=== PATIENT | female | born 1995 | race Two or more races ===

== ENCOUNTER 2023-03-30 01:53 | Day surgery (SDC) | payer OTHER, SELFPAY ==
[2023-03-15 14:11] VITALS: BMI 23.4
--- NOTE | 2023-03-15 14:15 | PC.NURSE ---
Report to the Outpatient Waiting Room, entrance under the green pavilion located off [facility], at time 1230 on date 03/30/23. Planned Procedure Time: 1430. Time changes happen often and if your time is changed the preop area will call you the afternoon before. - You and your visitor will be asked to self-screen and do not enter if you have any COVID symptoms. - A mask is optional within the hospital at this time. Patients may have clear liquids (water, carbonated beverages, clear teas, apple juice) until 3 hours prior to surgery with a maximum of 20 ounces. - No food from midnight until time of surgery Take the following medications with a SIP of water the morning of surgery: NONE DO NOT STOP ANY OF YOUR OTHER PRESCRIPTION MEDICATIONS PRIOR TO SURGERY ?EXCEPT THE FOLLOWING Medications to discontinue per physician: VITAMINS Date to take last dose: 03/26/23 Please no make-up, nail bulgarian, hairspray, perfume, deodorant, or body powder the day of surgery. No jewelry (including any body piercings) or valuables the day of surgery, leave them at home. Please take a shower or bath the night before, or the morning of, surgery with an antibacterial soap. Wear comfortable, loose fitting clothing. - Jewelry must be removed prior to entering the operating room. Rings and piercings that are not removed may be cut off. - The hospital will not accept responsibility for valuables. - Please leave all valuables, including medications, at home the day of surgery. If you are going home after surgery, a licensed cryogenic transport driver must drive you home. - NO public transportation without another adult if you receive anesthesia. - We recommend that an adult stay with you for 24 hours following discharge. - We also recommend that you do not drive, make important decision, drink alcoholic beverages, or take any drugs that were not prescribed by your health care provider for at least 24 hours after your discharge time. Follow any additional instructions given to you from your surgeon. If you or anyone in your household have experienced Covid symptoms in the past week, please notify your surgeon or the nurse liaison at the phone number below for possible testing. Telephone instructions given to PT - FLEX ARCEO and asked if any additional questions and then verbalized understanding. Patient advised to call surgeon office or pre surgery nurse liaison [phone] if any additional questions.
[2023-03-30] VITALS (10 sets, daily range): BP systolic 93–133; BP diastolic 49–84; PULSE 62–96; RESP 15–20; TEMP 36.4–36.6; O2SAT 99–100
--- NOTE | 2023-03-30 09:49 | P.PNAN_ITS ---
Anes - Initial Pre Proc Eval Procedure: Operation Date: 03/30/23 11:00 Proposed Procedures p Bilateral Breast Augmentation - Travis Muniz MD Date/Time: 03/30/23 09:49 Surgeon: Travis Muniz MD Pre Op Diagnosis: micromastia Patient Data Age: 27 Gender: F Height: 1.57 m Weight: 57.5 kg Last Vital Signs Temp 36.6 C 03/30/23 09:24 Pulse 62 03/30/23 09:24 Resp 18 03/30/23 09:24 BP 126/70 03/30/23 09:24 Pulse Ox 100 03/30/23 09:24 O2 Del Method Room Air 03/30/23 09:24 Allergies Allergy/AdvReac Type Severity Reaction Status Date / Time No Known Allergies Allergy Verified 03/15/23 14:10 Home Medications Medication Instructions Recorded Confirmed Type multivitamin 1 tablet PO DAILY 03/15/23 03/15/23 History Patient hx anesthesia problems: none Family hx anesthesia problems: none Results Review: All pre-operative results and documents have been reviewed as part of the pre- operative evaluation. [facility] Social History Social History Smoking status: Never smoker Alcohol intake: current Alcohol use details: RARE Substance use: current Substance use type: marijuana Living arrangements: with family Additional living arrangements comments: CHILDREN Spiritual care concerns: No Anes - Eval Final PreProcedure Day of Procedure 03/30/23 09:49 Patient weight: normal Heart: regular rate and rhythm Lungs: clear to auscultation Airway: Mallampati scale class II Neurological: alert and oriented Last oral intake: >/= 8 hours ASA classification: II Emergent: no Anesthetic plan: proceed Anesthesia type and monitoring: general LMA and standard monitoring Results Review: All pre-operative results and documents have been reviewed as part of the pre- operative evaluation. Informed Consent: The patient's anesthetic plan and its attendant risks and benefits were discussed with the patient/family/POA. Questions were solicited and answers provided to the satisfaction of the patient/family/POA.
[2023-03-30] MEDS: LACTATED RINGERS 1,000 ML 30 ML IV CONT ×2 (09:56→12:42)
--- NOTE | 2023-03-30 10:48 | WPDHPUPDATE1 ---
History and Physical Update Update Date/Time: 03/30/23 10:48 History and Physical has been reviewed, including an updated exam of the patient. There are NO changes in the patient's condition. Risks, benefits, and alternatives have been discussed and questions answered. Patient agrees to proceed with procedure.
--- NOTE | 2023-03-30 10:54 | W.PM.PROC2 ---
Procedure Note - Detailed Date of Procedure 03/30/23 Pre-op Diagnosis micromastia Post-op Diagnosis Same Procedure Performed Bilateral augmentation mammaplasty Surgeon Travis Muniz MD Anesthesia General Findings Bilateral Vicki SoftTouch 545 cc Right REF# [id number] SN [id number] Left REF# [id number] SN [id number] Description of Procedure She is here today for bilateral breast augmentation. Previously and again today the risks, benefits, alternatives were discussed in extensive detail. I wanted her to be very realistic about the risks involved as well as expectations. We discussed aftercare and what to monitor for. Made sure answered all of her questions to her satisfaction today and consent was obtained. Marked in the preoperative holding area with their verification. The patient was taken to the operating room placed supine on the operating table. Anesthesia was provided by anesthesiology. A surgical time-out was taken. We cleansed the skin and 1% lidocaine and 0.25% Marcaine with epinephrine was used anesthetize as a field block. She was prepped and draped in a standard sterile fashion. Tegaderm nipple Wolff were placed. A 15 blade used to make an incision along the inframammary fold. Dissection was continued at 45 degree angle until the chest wall as identified. I incised the pectoralis major along its inferior border and completely released the inferior border leaving the medial border intact. I created a subpectoral pocket in the appropriate dimensions based on our preoperative planning for the implant. I then copiously irrigated with saline solution and verified a strict hemostasis. Next the use a triple antibiotic and Betadine containing solution to irrigate the pocket. I washed my gloves with the triple antibiotic and Betadine solution. We washed the implant immediately upon opening it with this solution and only opened it when we needed it. I used implant funnel and no-touch technique. The implant was introduced into the pocket using the funnel. Having verified positioning of the implant this was closed using 2-0 PDS followed by 3-0 Monocryl in a running subcuticular 4-0 Monocryl followed by tissue glue. Fluffs and surgical bra were placed. Patient was awoke and taken to PACU without difficulty. All instrument sponge counts were correct at the end of the case. Estimated Blood Loss 25 Drains No Packing No Pathology None sent Complications No immediate complications Condition Stable Disposition PACU
[2023-03-30] MEDS: BUPivacaine HCL 0.25% PF 30 ML VIAL INFILTRATE (11:25)
[2023-03-30] MEDS: ceFAZolin 2 GM/D5W 50 ML 2 GM/50 ML BAG IVPB (11:25)
[2023-03-30] MEDS: TRANEXAMIC ACID 1,000MG/ISO100 1,000 MG/100 ML BAG 200 MG IVPB (11:30)
[2023-03-30] MEDS: NACL 0.9% IRRIG POUR BOTTLE 900 ML, GENTAMICIN SULFATE INJ 160 MG, ceFAZolin 2 GM, POVI... IRRIGATION (12:00)
[2023-03-30] MEDS: HYDROmorphone HCL INJ (*CRX) 1 MG/ML SYR 0.5 MG IV PUSH ×4 (12:55→13:29)
[2023-03-30] MEDS: oxyCODONE HCL (*CRX) 5 MG TAB IR PO (14:09)
== END 2023-03-30 14:55 | disposition home or self-care (01) ==
PROVIDERS: Visit Provider Surgery Plastic and Reconstructive Surgery
PROC: (CPT 19325; principal; 2023-03-30 11:00)
DX: Z41.1 Encounter for cosmetic surgery (principal); F12.90 Cannabis use, unspecified, uncomplicated
CPT/HCPCS: 19325; A9270; J0690; J1170; J1580; J2250; J2405; J2704; J7120

== ENCOUNTER 2024-04-09 06:49 | Day surgery (SDC) | payer OTHER, SELFPAY ==
[2024-03-18 12:19] VITALS: BMI 23.5
[2024-04-09] VITALS (7 sets, daily range): BP systolic 101–118; BP diastolic 68–80; PULSE 65–93; RESP 12–18; TEMP 36.3–36.4; O2SAT 97–100; BMI 23.0
[2024-04-09] MEDS: LACTATED RINGERS 1,000 ML 30 ML IV CONT ×2 (08:22→10:33)
--- NOTE | 2024-04-09 08:34 | P.OP_ITS ---
Procedure Note - Detailed Date of Procedure 04/09/24 Pre-op Diagnosis Capsular Contracture Left Breast Post-op Diagnosis Same Procedure Performed Left breast implant exchange Surgeon Travis Muniz MD Anesthesia General Indications History bilateral augmentation mammaplasty with left breast capsular contractu re. Would like to proceed with left implant exchange. Findings Thin capsules noted Partial capsulectomy completed IMF adjusted to match contralateral side Lateral capsulotomy Description of Procedure Preoperatively the risks, benefits, alternatives were discussed in extensive detail. I wanted to be very realistic about the risks involved as well as expectations. She understands there will always be a degree of asymmetry. She understands capsular contracture can recur. I was clear about how we could actually make her worse. Answered all questions to satisfaction. Voiced a clear understanding. Consent obtained. She was taken the operating room placed supine on the operating room table. Anesthesia provided by anesthesiology and prepped and draped in a standard sterile fashion. Surgical time-out was taken. 1% lidocaine and 0.25% Marcaine with epinephrine was used to provide a field block. Tegaderm nipple shaffer were placed. Fifteen blade used to excise the previous left IMF scar. Dissection was continued down until the capsule was identified and excised a significant por tion of the capsule (findings as above). Implant removed with no signs of injury as soaked in PhaseOne on the back table. I then copiously irrigated with 3 L of saline solution on TUR tubing. Verified strict hemostasis. Allowed the breast to soak in Phase one. After adequate time for PhaseOne effect I irrigated with saline solution. Verified a strict hemostasis. I then irrigated with Betadine containing solution. Using a no-touch technique and a Yin funnel the implant was introduced into the pocket. Placed in a sitting position and the IMF and lateral breast did not match her right side. I then dissected inferior protecting the implant to the desired IMF. This was secured with 3-0 PDO strattafix. I also secured just inferior to the IMF with 3-0 nylon as a hemostatic net. During this she was placed into a sitting position repeatedly while adjusting position until there appeared to be a good match between the left and right breast. This was closed with 2-0 PDS followed by 3-0 Monocryl and a running subcuticular 4-0 Monocryl followed by tissue glue. Dressings were placed. She was woken taken to the PACU without difficulty. All instrument sponge counts were correct at the end of the case. Estimated Blood Loss 30 Drains No Packing No Pathology None sent Complications No immediate complications Condition Stable Disposition PACU
--- NOTE | 2024-04-09 08:34 | WPDHPUPDATE1 ---
History and Physical Update Update Date/Time: 04/09/24 08:34 History and Physical has been reviewed, including an updated exam of the patient. There are NO changes in the patient's condition. Risks, benefits, and alternatives have been discussed and questions answered. Patient agrees to proceed with procedure.
--- NOTE | 2024-04-09 08:37 | SUR.PREOP ---
FEMALE STAFF IN ROOM WHILE DR MONAHAN MARKED PT. MOTHER AT BEDSIDE.
--- NOTE | 2024-04-09 09:02 | P.PNAN_ITS ---
Anes - Initial Pre Proc Eval Procedure: Operation Date: 04/09/24 09:00 Proposed Procedures p Left Breast Implant Exchange - Travis Muniz MD Date/Time: 04/09/24 09:02 Surgeon: Travis Muniz MD Pre Op Diagnosis: Capsular Contracture Left Breast Patient Data Age: 28 Gender: F Height: 1.57 m Weight: 57.1 kg Last Vital Signs Temp 36.4 C 04/09/24 08:01 Pulse 72 04/09/24 08:01 Resp 16 04/09/24 08:01 BP 115/75 04/09/24 08:01 Pulse Ox 100 04/09/24 08:01 O2 Del Method Room Air 04/09/24 08:01 Allergies Allergy/AdvReac Type Severity Reaction Status Date / Time montelukast (From Singulair) AdvReac Mild Dizziness Verified 04/09/24 07:54 Home Medications ?Medication ?Instructions ?Recorded ?Confirmed ?Type multivitamin 1 tablet PO DAILY 03/15/23 04/09/24 History Patient hx anesthesia problems: none Family hx anesthesia problems: none Results Review: All pre-operative results and documents have been reviewed as part of the pre- operative evaluation. [facility] Social History Social History Smoking status: Never smoker Alcohol intake: current Alcohol use details: RARE Substance use: current Substance use type: marijuana Living arrangements: with family Additional living arrangements comments: CHILDREN Spiritual care concerns: No Anes - Eval Final PreProcedure Day of Procedure 04/09/24 09:02 Patient weight: normal Heart: regular rate and rhythm Lungs: clear to auscultation Airway: Mallampati scale class 1 Neurological: alert and oriented Last oral intake: >/= 8 hours ASA classification: II Emergent: no Anesthetic plan: proceed Anesthesia type and monitoring: general LMA and standard monitoring Results Review: All pre-operative results and documents have been reviewed as part of the pre- operative evaluation. Informed Consent: The patient's anesthetic plan and its attendant risks and benefits were discussed with the patient/family/POA. Questions were solicited and answers provided to the satisfaction of the patient/family/POA.
[2024-04-09] MEDS: ceFAZolin SODIUM 2 GM/20 ML SW SYRINGE IV PUSH (09:05)
[2024-04-09] MEDS: LIDO 1%/EPINEPHRINE 1:100,000 10 ML VIAL 30 ML INFILTRATE (09:17)
[2024-04-09] MEDS: BUPivacaine HCL 0.25% PF 10 ML VIAL INFILTRATE (09:17)
[2024-04-09] MEDS: fentaNYL CITRATE INJ (*CRX) 100 MCG/2 ML VIAL 25 MCG IV PUSH ×3 (10:42→10:58)
--- NOTE | 2024-04-09 10:42 | WPDANESPN ---
Anes - Prog Note Post-Op Date/Time: 04/09/24 10:42 Cardiovascular status: normal Respiratory status: normal Airway patency: baseline Mental status: baseline Post-Op hydration status: normal Vital Signs: Last Vital Signs Temp 36.3 C L 04/09/24 10:33 Pulse 93 04/09/24 10:33 Resp 12 04/09/24 10:33 BP 118/68 04/09/24 10:33 Pulse Ox 100 04/09/24 10:33 O2 Del Method Simple Face Mask 04/09/24 10:33 O2 Flow Rate 6 04/09/24 10:33 Pain Score (VAS): 1 Patient Feedback: Patient satisfied with anesthetic care.
[2024-04-09] MEDS: oxyCODONE HCL (*CRX) 5 MG TAB IR PO (11:30)
--- NOTE | 2024-04-09 12:05 | WPDANESPN ---
Anes - Prog Note Post-Op Date/Time: 04/09/24 12:05 Cardiovascular status: normal Respiratory status: normal Airway patency: baseline Mental status: baseline Post-Op hydration status: normal Vital Signs: Last Vital Signs Temp 36.3 C L 04/09/24 10:33 Pulse 65 04/09/24 11:32 Resp 16 04/09/24 11:32 BP 110/80 04/09/24 11:32 Pulse Ox 100 04/09/24 11:32 O2 Del Method Room Air 04/09/24 11:32 O2 Flow Rate 4 04/09/24 10:48 Pain Score (VAS): 0/10 I/O: Intake & Output 04/08/24 04/09/24 04/09/24 23:59 07:59 15:59 Intake Total 1625 Balance 1625 Patient Feedback: Patient satisfied with anesthetic care.
== END 2024-04-09 11:54 | disposition home or self-care (01) ==
PROVIDERS: Visit Provider Surgery Plastic and Reconstructive Surgery
PROC: (CPT 19342; principal; 2024-04-09 09:00)
DX: T85.44XD Capsular contracture of breast implant, subsequent encounter (principal)
CPT/HCPCS: 19342